=== PATIENT | male | born 1995 | race Hispanic/Latino ===

== ENCOUNTER 2023-06-09 11:44 | Emergency (ER) | payer SELFPAY ==
[2023-06-09] MEDS ORDERED: Acetaminophen 500 MG TAB ONE (12:15)
== END 2023-06-09 12:24 | disposition home or self-care (01) ==
LOC: CSHERS 11:44
DX: M25.561 Pain in right knee (principal); M54.2 Cervicalgia
CPT/HCPCS: 99283

== ENCOUNTER 2023-10-03 09:39 | Emergency (ER) | payer SELFPAY ==
[2023-10-03] MEDS ORDERED: Proparacaine 0.5% Opth 15 ML BOT ONE (10:07)
[2023-10-03] MEDS ORDERED: Fluorescein Opthalmic Strip ONE (10:09)
[2023-10-03] MEDS ORDERED: Boostrix 0.5 ML (Tdap) VIAL (>/=7 yrs of age) ONE (10:37)
== END 2023-10-03 10:43 | disposition home or self-care (01) ==
LOC: CSHERS 09:39
DX: T15.01XA Foreign body in cornea, right eye, initial encounter (principal); F17.200 Nicotine dependence, unspecified, uncomplicated; Z23 Encounter for immunization
CPT/HCPCS: 65222; 90715; 99282

== ENCOUNTER 2024-03-25 13:22 | Emergency (ER) | payer SELFPAY ==
[2024-03-25] MEDS ORDERED: cefTRIAXone (ROCEPHIN) 500 MG VIAL ONE (14:00)
[2024-03-25] MEDS ORDERED: Sterile Water 10 ML ONE (14:01)
[2024-03-25 14:18] LABS: Bilirubin Neg (Negative); Blood, Urine Negative (Negative); Clarity Clear (Clear); Glucose, Urine (Dipstick) Normal (Negative); Ketone, Urine Negative (Negative); Leukocyte Negative (Negative); Nitrite Negative (Negative); Protein, Urine (Dipstick) Negative (Neg-Trace); Specific Gravity, Urine 1.005 (1.005-1.030); Urobilinogen Normal mg/dL (Less than 2)
[2024-03-25 14:46] LABS: Bacteria/HPF Rare-Few HPF (None Seen); CAUTI Indications for Culture Pelvic or flank pain; RBC/HPF None Seen HPF (0-3); Squamous Epithelial 0-3 HPF (0-3); WBC/HPF None Seen HPF (0-3)
[2024-03-25 14:48] LABS: Urine Culture Reflex No No
[2024-03-26 14:18] LABS: Chlam.trachomatis by PCR,Urine Not Detected (NotDetected); GC N.gonorrhoeae PCR,UrineVOID Not Detected (NotDetected)
== END 2024-03-25 15:06 | disposition home or self-care (01) ==
LOC: CSHERS 13:22
DX: N48.1 Balanitis (principal); F17.200 Nicotine dependence, unspecified, uncomplicated
CPT/HCPCS: 81001; 87086; 87491; 87591; 99283; J0696